=== PATIENT | female | born 1985 | race Caucasian/White ===

== ENCOUNTER 2016-11-23 12:56 | Inpatient (IN) ==
--- OUTSIDE RECORDS SUMMARY | 2016-11-23 13:34 | External Medical Summary | Continuity of Care Document ---
:1985 Author Organization [facility] Allergies Medications Problems Procedures Results Encounters ACCT No. Visit Discharge Status Pt. Type Provider Facility Loc./Unit Complaint Date/Time [id number] 06/02/2013 06/02/2013 CLS Outpatient 08:05:00 23:59:59 [id number] 06/01/2013 06/01/2013 CLS Outpatient 15:23:00 23:59:59 [id number] 03/02/2013 03/02/2013 CLS Outpatient 16:20:00 23:59:59
--- NOTE | 2016-11-23 14:20 | History & Physical Report ---
<Ludy Martínez V - Last Filed: 11/23/16 14:14> History of Present Illness Date: 11/23/16 Chief complaint: tonsillitis, leukocytosis HPI: Lucia is a pleasant 31-year-old female with a known history of bipolar disorder and mild MR. She is high functioning at baseline. 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. Last evening she noticed she was not feeling well and started having a sore throat. She reported having a fever, headaches with nausea. Today present. She presented to [facility] and was seen by Dr. Koehler. (Her primary care is Dr. Michelle). Inital strep and Randolph screen at the clinic today are negative. The BBC count was found to be elevated at 16.4, 67 segs and 24% bandemia. Sodium is normal at 141, potassium 3.9, BUN 11, creatinine 0.6. She was found to have a fever at the clinic of 100.7, pulse was elevated at 110. She was given 1 liter of IV fluids as well as 1 gram of IV Rocephin. Due to the significance of her throat pain and trismus, accompanied with leukocytosis and fever. Patient is unable to swallow fluids to maintain hydration. The hospitalist services were contacted and accepted patient for direct admission as an outpatient for further evaluation and treatment. Lucia is seen on initial arrival to [facility] accompanied with her mother (LAURA). On exam, she does appear uncomfortable. She is unable to tolerate swallowing even ice chips as this is painful. She is noted to have some white exudate on her bilateral tonsils along with erythema and swelling. Despite the IV fluid bolus. She received prior to arrival, her heart rate continues to be elevated at 100, and she is to Breathing 26 times a minute. Blood pressure stable at 110/67, and room air saturations 97%. Review of Systems Comprehensive ROS: completed and no additional positive findings except those as stated - Constitutional Constitutional: Present: chills, fatigue, fever(s), headache(s) - EENMT Mouth/Throat: Present: as per HPI, pain, sore throat, changes in swallowing, painful swallowing, dry mouth, change in voice - Gastrointestinal Gastrointestinal: Present: nausea - Musculoskeletal Musculoskeletal: Present: myalgias PFSH Past medical history ADD Bipolar affective disorder. Miranda/Delusions PTSD MR Seizure disorder Enthesopathy of ankle Pes planus (Flat foot disorder) History of urethral strictures. Surgical History: Cystoscopy-2002, 2005, 2007. D&C-2002 Family History: Father-mental illness Mother-alive and well Her other with seizure disorder Paternal grandfather with pancreatic cancer Paternal grandmother with dementia - Social History Smoking status: Never smoker Substance use type: does not use Alcohol intake frequency: does not drink Housing: house (resides independently) Current occupational status: employed ([employer]) Social history: PCP Dr Michelle [facility] Medications Home Medications Medication Instructions Recorded Confirmed Type Benztropine Mesylate 1 mg PO BID #0 10/23/10 11/23/16 History Medroxyprogesterone Acetate 150 mg IM EVERY 3 MONTHS #0 10/23/10 11/23/16 History [Depo-Provera] Calcium 500 + D [Os Christophe-D 500] 1 tab PO HS 11/23/16 11/23/16 History Multivitamin [One Daily 1 each PO HS 11/23/16 11/23/16 History Multivitamin] [place]-3/Dha/Epa/Fish Oil [Fish Oil 1 each PO BID 11/23/16 11/23/16 History 1,000 mg Softgel] cloZAPine [Clozapine] 150 mg PO HS 11/23/16 11/23/16 History cloZAPine [Clozapine] 200 mg PO AM 11/23/16 11/23/16 History Allergies Allergy/AdvReac Type Severity Reaction Status Date / Time Iodinated Contrast- Oral and Allergy Intermediate Verified 11/23/16 15:43 IV Dye Exam Vital Signs: Temperature 98.6 F 11/23/16 13:54 Pulse Rate 100 11/23/16 13:54 Respiratory Rate 26 H 11/23/16 13:54 Blood Pressure 110/69 11/23/16 13:54 Pulse Oximetry 97 11/23/16 13:54 Oxygen Delivery Method Room Air - Constitutional Present: no acute distress, well nourished, well developed - Routine HEENT Exam Eye: Present: EOMI ENT: Present: mucous membranes moist, dentition normal - Routine Neck Exam Present: tenderness (bilateral tonsillar ). Absent: tracheal deviation Comments: Trismus with voice change - Routine Respiratory Exam Present: CTA bilaterally. Absent: wheezes - Routine Cardiovascular Exam Present: RRR, S1, S2. Absent: murmur - Routine Abdominal Exam Present: soft, normoactive bowel sounds, non distended. Absent: tenderness - Routine Extremities Exam Present: normal capillary refill - Routine Back/Spine/Pelvis Exam Back/Spine: Present: full ROM - Routine Skin Exam Present: intact, dry, warm - Routine Neurological Exam Present: alert, oriented X3, moving all extremities CN 3-12 intact - Routine Psychiatric Exam Present: normal affect Assessment and Plan (1) SIRS (systemic inflammatory response syndrome) Current visit: Yes Status: Acute (2) Acute tonsillitis Current visit: Yes Status: Acute DVT Prophylaxis: SCD's Resuscitation Status: Full Code Assessment and Plan: Impression SIRS- criteria including the following- , Leukocytosis, bandemia, tachycardia following IV fluids, fever prior to arrival 100.7, tachypnea Acute tonsillitis Mental retardation-mild ADD, miranda and Bipolar PTSD Seizure disorder Plan Initially admit patient. Outpatient observation under the care of Dr. White for SIRS with acute tonsillitis. Obtain blood cultures 2, venous lactate and pro-calcitonin to rule out sepsis Patient did receive 1 liter of IV normal saline at the clinic prior to arrival. Despite this fluid. She continues to have tachycardia with a heart rate of 100 on admission. Due to the significance of her tonsillar pain. She is unable to swallow fluids to maintain hydration. We will continue IV fluids, normal saline at 100 ML per hour. Zofran available as needed for nausea. Toradol available as needed for pain control as patient does complain of a mild headache. Patient may have full liquid diet SCDs to bilateral lower extremity for DVT prophylaxis Home medications will need to be reviewed and ordered accordingly. She does verbalize concern of missing nighttime doses. May need to crush meds. If she is unable to swallow pills whole. Will recheck CBC and BMP tomorrow morning to follow blood counts, renal function and electrolytes. Will discuss further orders and plan of care with attending Dr. White. At time of discharge medical care will return to primary care provider, Dr. Michelle Hospital Course Summary Disclaimer: The visit summary below is not to be considered part of the above Progress Note. Hospital Course: 11/23/16 Impression SIRS- criteria including the following- , Leukocytosis, bandemia, tachycardia following IV fluids, fever prior to arrival 100.7, tachypnea Acute tonsillitis Mental retardation-mild ADD, miranda and Bipolar PTSD Seizure disorder Plan Initially admit patient. Outpatient observation under the care of Dr. White for SIRS with acute tonsillitis. Obtain blood cultures 2, venous lactate and pro-calcitonin to rule out sepsis Patient did receive 1 liter of IV normal saline at the clinic prior to arrival. Despite this fluid. She continues to have tachycardia with a heart rate of 100 on admission. Due to the significance of her tonsillar pain. She is unable to swallow fluids to maintain hydration. We will continue IV fluids, normal saline at 100 ML per hour. Zofran available as needed for nausea. Toradol available as needed for pain control as patient does complain of a mild headache. Patient may have full liquid diet SCDs to bilateral lower extremity for DVT prophylaxis Home medications will need to be reviewed and ordered accordingly. She does verbalize concern of missing nighttime doses. May need to crush meds. If she is unable to swallow pills whole. Will recheck CBC and BMP tomorrow morning to follow blood counts, renal function and electrolytes. Will discuss further orders and plan of care with attending Dr. White. At time of discharge medical care will return to primary care provider, Dr. Michelle <Paulina White - Last Filed: 11/23/16 17:58> History of Present Illness Date: 11/23/16 [facility] Patient Stated Medical History Other SEE ABOVE Other Musculoskeletal HX BALANCE DIFFICULTY Bipolar Disorder Yes Post Traumatic Stress Disorder Yes Abnormal Pap Yes Exam Vital Signs: Temperature 98.8 F 11/23/16 15:47 Pulse Rate 96 11/23/16 15:47 Respiratory Rate 26 H 11/23/16 15:47 Blood Pressure 117/65 11/23/16 15:47 Pulse Oximetry 97 11/23/16 15:47 Oxygen Delivery Method Room Air Height/Weight/BMI: Height 1.73 m Weight 90.7 kg Body Mass Index 30.4 Results - Labs Microbiology Results: Microbiology 11/23/16 14:24 Peripheral/Iv Start Blood Culture - Preliminary Culture Initiated - Results Pending 11/23/16 14:15 Peripheral/Iv Start Blood Culture - Preliminary Culture Initiated - Results Pending Assessment and Plan (1) Acute tonsillitis Problem details: Acute strep/Monospot negative Current visit: Yes Status: Acute (2) Sepsis Current visit: Yes Status: Acute Assessment and Plan: I have independently evaluated and examined this patient. I reviewed the chart, the patient's history, and the TECHNICAL TRAINING COORDINATOR/PA's documented findings as above. We discussed and formulated the assessment and plan as above with additions as below: Increasing pharyngeal pain accompanied by difficulty swallowing and trismus for 1-2 days. Presents with fever, tachycardia, tachypnea, leukocytosis, and left shift. Patient is anxious and difficulty speaking precludes her from providing most of history. Mom, Dr. Koehler, and office records supplemented patient's history. Examination reveals incomplete opening of the mouth but clear erythema posteriorly and exudates over the tonsils, uvula is midline. There is diffuse tenderness in the anterior cervical chain with a 1 cm tender node on the right; there supraclavicular tenderness although I could not appreciate any discrete adenopathy. No posterior adenopathy was appreciated. Respirations are nonlabored and breath sounds clear. Tonsillitis/acute pharyngitis with sepsis. Lactic acid 0.8, received Rocephin in the office, will treat with Unasyn. Follow-up on strep culture at [facility] tomorrow. Add steroids for swelling/trismus. Impaired oral intake-continue fluids as planned. Discussed with Dr. Koehler, office records reviewed, laboratory data reviewed; supplemental history provided by patient's mother. Sepsis Assessment - Evaluation Possible source: other (pharynx) SIRS Criteria: temperature > or equal to 100.4, pulse > or equal to 90 beats/ minute, WBC > or equal to 12,000, Bands > or equal to 10%, RR > or equal to 20 Hospital Course Summary Disclaimer: The visit summary below is not to be considered part of the above Progress Note.
[2016-11-23] MEDS: NS 1,000 ML IV SCH (14:21)
[2016-11-23] MEDS: SALINE FLUSH 10ml SYRINGE IVF PRN ×2 (14:22→21:11)
[2016-11-23] MEDS ORDERED: ONDANSETRON 4 MG/2 ML INJECTION IVP PRN (14:27)
[2016-11-23] MEDS: KETOROLAC 15 MG/ML INJECTION IVP PRN ×2 (14:38→21:08)
[2016-11-23 15:08] VITALS: BMI 30.4
[2016-11-23] MEDS ORDERED: PENICILLIN G BENZATHINE 1.2 MMU/2 ML SYRINGE IM ONE (17:43)
[2016-11-23] MEDS: METHYLPREDNISOLONE SOD SUCC 40mg/ml INJECTION IVP SCH (18:41)
[2016-11-23] MEDS: AMPICILLIN/SULBACTAM 3 G in NS 100 ML IV SCH (18:43)
[2016-11-23] MEDS: CloZAPine 100 MG TABLET PO SCH (21:10)
[2016-11-23] MEDS: CALCIUM 500 + VIT D 200 TABLET PO SCH (21:10)
[2016-11-23] MEDS: BENZTROPINE 1 MG TABLET PO SCH (21:10)
[2016-11-24] MEDS: AMPICILLIN/SULBACTAM 3 G in NS 100 ML IV SCH ×4 (00:24→17:43)
[2016-11-24] MEDS: METHYLPREDNISOLONE SOD SUCC 40mg/ml INJECTION IVP SCH ×2 (00:25→08:43)
[2016-11-24] MEDS: NS 1,000 ML IV SCH ×2 (00:25→13:22)
[2016-11-24] MEDS: KETOROLAC 15 MG/ML INJECTION IVP PRN (04:58)
[2016-11-24] MEDS: SALINE FLUSH 10ml SYRINGE IVF PRN (04:59)
[2016-11-24] MEDS: CloZAPine 100 MG TABLET PO SCH ×2 (08:43→22:34)
[2016-11-24] MEDS: BENZTROPINE 1 MG TABLET PO SCH ×2 (08:44→22:34)
[2016-11-24] MEDS ORDERED: ACETAMINOPHEN 325 MG TABLET PO PRN ×2 (16:43→16:46)
--- NOTE | 2016-11-24 16:50 | Progress Note ---
<LarryAbigail Feliberto - Last Filed: 11/24/16 16:47> Subjective: Lucia is seen in follow up. She reports feeling better- hungry and wanting to eat. Does report intermittent headache since she has been ill. No photophobia. No N/ V. Does report that she did have some abdominal pain since the onset of illness, now improving. Reports that she is swallowing without pain. No other acute c/o. Chart is reviewed. Lucia is mildly MR, so she is a bit of a poor historian. She does answer appropriate questions. Objective Vital signs: Temperature 97.7 F 11/24/16 15:49 Pulse Rate 76 11/24/16 15:49 Respiratory Rate 20 11/24/16 15:49 Blood Pressure 128/65 11/24/16 15:49 Pulse Oximetry 95 11/24/16 15:49 Oxygen Delivery Method Room Air Height/Weight/BMI: Height 1.73 m Weight 92.6 kg Body Mass Index 30.4 - Constitutional Present: no acute distress, well nourished, well developed, average body habitus - Routine HEENT Exam Head: Present: normocephalic, atraumatic Eye: Present: EOMI, PERRL ENT: Present: mucous membranes moist, dentition normal - Routine Respiratory Exam Present: CTA bilaterally. Absent: rhonchi, wheezes, crackles Comments: Decreased breath sounds in bases. No cough or congestion. - Routine Cardiovascular Exam Present: RRR, S1, S2, no murmur - Routine Abdominal Exam Present: soft, normoactive bowel sounds, non distended, non tender - Routine Extremities Exam Present: no edema, non tender - Routine Musculoskeletal Exam Musculoskeletal: Present: no clubbing or cyanosis, normal strength - Routine Skin Exam Present: intact, dry, warm - Routine Neurological Exam Present: alert, oriented X3 - Routine Psychiatric Exam Present: normal affect, normal thought process Results - Labs CBC & Chem 7: 11/24/16 04:30 11/24/16 04:30 Microbiology Results: Microbiology 11/23/16 14:24 Peripheral/Iv Start Blood Culture - Preliminary No Growth After 1 Day 11/23/16 14:15 Peripheral/Iv Start Blood Culture - Preliminary No Growth After 1 Day 11/23/16 18:57 Throat Throat Culture - Preliminary Normal Oral Tresa Present Assessment and Plan (1) Acute tonsillitis Problem details: Acute strep/Monospot negative Current visit: Yes Status: Acute (2) Sepsis Current visit: Yes Status: Acute DVT Prophylaxis: SCD's Resuscitation Status: Full Code Assessment and Plan: Impression: SIRS- criteria including the following- , Leukocytosis, bandemia, tachycardia following IV fluids, fever prior to arrival 100.7, tachypnea Acute tonsillitis/Pharyngitis (Likely strep given headache and abdominal pain) Mental retardation-mild ADD, miranad and Bipolar PTSD Seizure disorder Headache Plan: 11/24/16- She is feeling a bit better. Hungry- will allow diet as tolerated. Continue IV abx, IVF, toradol for supportive care. Will add Tylenol for breakthrough headache. Continue supportive home meds. Repeat labs in AM. Potentially home tomorrow. Lucia had multiple appropriate questions about her condition, D/W her at length. Will add SCDs for DVT px. - Time spent with patient 25 - 35 minutes Sepsis Assessment - Evaluation Sepsis screening result: No Definite Risk Hospital Course Summary Disclaimer: The visit summary below is not to be considered part of the above Progress Note. Hospital Course: 11/23/16 Impression SIRS- criteria including the following- , Leukocytosis, bandemia, tachycardia following IV fluids, fever prior to arrival 100.7, tachypnea Acute tonsillitis Mental retardation-mild ADD, miranda and Bipolar PTSD Seizure disorder Plan Initially admit patient. Outpatient observation under the care of Dr. White for SIRS with acute tonsillitis. Obtain blood cultures 2, venous lactate and pro-calcitonin to rule out sepsis Patient did receive 1 liter of IV normal saline at the clinic prior to arrival. Despite this fluid. She continues to have tachycardia with a heart rate of 100 on admission. Due to the significance of her tonsillar pain. She is unable to swallow fluids to maintain hydration. We will continue IV fluids, normal saline at 100 ML per hour. Zofran available as needed for nausea. Toradol available as needed for pain control as patient does complain of a mild headache. Patient may have full liquid diet SCDs to bilateral lower extremity for DVT prophylaxis Home medications will need to be reviewed and ordered accordingly. She does verbalize concern of missing nighttime doses. May need to crush meds. If she is unable to swallow pills whole. Will recheck CBC and BMP tomorrow morning to follow blood counts, renal function and electrolytes. Will discuss further orders and plan of care with attending Dr. White. At time of discharge medical care will return to primary care provider, Dr. Michelle 11/24/16 16:53 11/24/16 16:57 11/24/16- She is feeling a bit better. Hungry- will allow diet as tolerated. Continue IV abx, IVF, toradol for supportive care. Will add Tylenol for breakthrough headache. Continue supportive home meds. Repeat labs in AM. Potentially home tomorrow. Lucia had multiple appropriate questions about her condition, D/W her at length. Will add SCDs for DVT px. <Paulina White - Last Filed: 11/24/16 20:20> Objective Vital signs: Temperature 97.7 F 11/24/16 15:49 Pulse Rate 100 11/24/16 16:00 Respiratory Rate 20 11/24/16 15:49 Blood Pressure 128/65 11/24/16 15:49 Pulse Oximetry 95 11/24/16 15:49 Oxygen Delivery Method Room Air Height/Weight/BMI: Height 1.73 m Weight 92.6 kg Body Mass Index 30.4 Results - Labs CBC & Chem 7: 11/24/16 04:30 11/24/16 04:30 Microbiology Results: Microbiology 11/23/16 14:24 Peripheral/Iv Start Blood Culture - Preliminary No Growth After 1 Day 11/23/16 14:15 Peripheral/Iv Start Blood Culture - Preliminary No Growth After 1 Day 11/23/16 18:57 Throat Throat Culture - Preliminary Normal Oral Tresa Present Assessment and Plan (1) Acute tonsillitis Problem details: Acute strep/Monospot negative Current visit: Yes Status: Acute (2) Sepsis Current visit: Yes Status: Acute Assessment and Plan: I have independently evaluated and examined this patient. I reviewed the chart, the patient's history, and the LAND RESOURCE SPECIALIST/PA's documented findings as above. We discussed and formulated the assessment and plan as above with additions as below: Lucia reports decreased oropharyngeal pain improved intake of full liquids today. She's been able to swallow medications without difficulty. She denied dyspnea or fever. She denied dysuria but reports large-volume urine. Mother reports that she's been more awake/alert today than is typical and asked if steroids were contributing to this. Speech is clearer today with stronger voice. Able to open mouth well, tonsils well visualized-erythematous with crypts and exudates, uvula midline Neck supple, minor adenopathy, significantly less tender today Respirations nonlabored and clear Low-grade tachycardia [facility] records reviewed-throat culture obtained yesterday positive for group G beta-hemolytic strep in large quantity Strep throat/tonsillitis-doing well Continue current therapy, advance to soft diet with decreased IV fluids. If tolerates changes made today will convert to oral antibiotics and discharge tomorrow. Convert to oral prednisone and taper quickly. Hospital Course Summary Disclaimer: The visit summary below is not to be considered part of the above Progress Note.
[2016-11-24] MEDS: PredniSONE 20 MG TABLET PO SCH (17:48)
[2016-11-24] MEDS: CALCIUM 500 + VIT D 200 TABLET PO SCH (22:34)
[2016-11-25] MEDS: AMPICILLIN/SULBACTAM 3 G in NS 100 ML IV SCH ×3 (00:18→12:14)
[2016-11-25] MEDS: NS 1,000 ML IV SCH ×2 (00:18→13:10)
[2016-11-25 07:52] VITALS: BP 118/75; PULSE 73; RESP 18; TEMP 96.7; O2SAT 97
[2016-11-25] MEDS: BENZTROPINE 1 MG TABLET PO SCH (08:10)
[2016-11-25] MEDS: CloZAPine 100 MG TABLET PO SCH (08:10)
[2016-11-25] MEDS: PredniSONE 20 MG TABLET PO SCH (08:10)
[2016-11-25] MEDS ORDERED: PENICILLIN G BENZATHINE 1.2 MMU/2 ML SYRINGE IM ONE (12:00)
--- NOTE | 2016-11-25 12:10 | Discharge Instructions ---
Discharge Plan - Med Rec/Dispo Referrals/Follow Up: Kirt Michelle MD [Primary Care Provider] - 1 Week Randi Instructions: Strep Throat (GEN) Prescriptions: New PredniSONE [Deltasone] 20 mg PO WB #3 tab Acetaminophen [Tylenol] 650 mg PO Q5H PRN tablet PRN Reason: Pain Continue Medroxyprogesterone Acetate [Depo-Provera] 150 mg IM EVERY 3 MONTHS #0 Multivitamin [One Daily Multivitamin] 1 each PO HS [place]-3/Dha/Epa/Fish Oil [Fish Oil 1,000 mg Softgel] 1 each PO BID cloZAPine [Clozapine] 150 mg PO HS Calcium 500 + D [Os Christophe-D 500] 1 tab PO HS Benztropine Mesylate 1 mg PO BID #0 cloZAPine [Clozapine] 200 mg PO AM Discharge Instructions/Outpatient Orders: Final Provider Discharge Instructions Location: Determined By Patient - Disposition 01 Discharged Home, Self-Care
--- NOTE | 2016-11-25 18:39 | Discharge Summary ---
Discharge Information Date of admission: 11/23/16 16:05 Anticipated date of discharge: 11/25/16 Attending Physician: Paulina White MD Primary care physician: Kirt Michelle MD - Discharge Diagnosis Discharge Diagnosis: Strep pharyngitis/tonsillitis - Laboratory Labs: 11/25/16 04:00 11/25/16 04:00 - Microbiology Microbiology 11/23/16 14:24 Peripheral/Iv Start Blood Culture - Preliminary No Growth After 2 Days 11/23/16 14:15 Peripheral/Iv Start Blood Culture - Preliminary No Growth After 2 Days 11/23/16 18:57 Throat Throat Culture - Final Normal Oral Tresa Present History of Present Illness HPI: Lucia is a pleasant 31-year-old female with a known history of bipolar disorder and mild MR. She is high functioning at baseline. 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 Last evening she noticed she was not feeling well and started having a sore throat. She reported having a fever, headaches with nausea. Today present. She presented to via [facility] [place] clinic and was seen by Dr. Koehler. (Her primary care is Dr. Michelle). Inital strep and [place] screen at the clinic today are negative. The [facility] count was found to be elevated at 16.4, 67 segs and 24% bandemia. Sodium is normal at 141, potassium 3.9, BUN 11, creatinine 0.6. She was found to have a fever at the clinic of 100.7, pulse was elevated at 110. She was given 1 liter of IV fluids as well as 1 gram of IV Rocephin. Due to the significance of her throat pain and trismus, accompanied with leukocytosis and fever. Patient is unable to swallow fluids to maintain hydration. The hospitalist services were contacted and accepted patient for direct admission as an outpatient for further evaluation and treatment. Lucia is seen on initial arrival to [facility] accompanied with her mother (DPOA). On exam, she does appear uncomfortable. She is unable to tolerate swallowing even ice chips as this is painful. She is noted to have some white exudate on her bilateral tonsils along with erythema and swelling. Despite the IV fluid bolus. She received prior to arrival, her heart rate continues to be elevated at 100, and she is to Breathing 26 times a minute. Blood pressure stable at 110/67, and room air saturations 97%. Hospital Course This is a general summary of the patient's hospital course. For more details refer to the complete medical record. Hospital course: Impression Sepsis Acute tonsillitis/pharyngitis-group G strep positive Trismus Dehydration Mental retardation-mild ADD, miranda and Bipolar PTSD Seizure disorder Plan Lucia was admitted with acute pharyngitis, trismus, and inability to maintain oral intake. She had multiple criteria for sepsis based on leukocytosis, left shift, tachycardia present after administration of IV fluids prior to arrival, tachypnea, and fever. Unasyn was initiated for pharyngitis and IV fluids continued on admission. The patient was treated with Solu-Medrol the first 24 hours and then converted to prednisone due to trismus with prompt improvement in ability to open her mouth and tolerating oral intake. Rate of IV fluids was reduced on the second hospital day and she was able to increase oral intake and advanced to full liquids and then soft diet with therapy. Hemoglobin dropped slightly with hydration consistent with presenting dehydration. Cultures obtained during the hospitalization were negative however a strep culture obtained in the outpatient office was positive for group B strep. The patient was clinically stable on 11/25 and felt capable of oral antibiotics for continuation of therapy. She preferred IM pen G as a single dose to complete antibiotic therapy to oral antibiotics however to 1.2 million units dose was given completing therapy prior to discharge. On the date of discharge Lucia reported that her throat was significantly better and she was tolerating oral intake well. Examination demonstrated persistent erythema in the posterior pharynx although less intense than on admission. There is residual enlargement of the tonsils with crypts present and some exudate. Neck was supple with minimal adenopathy but marked improvement in tenderness present on admission. Respirations were nonlabored and Lucia was alert and cooperative. She is asked to continue prednisone 20 mg daily for 3 additional days and will otherwise continue all of her usual medications at prior dosages. She is to follow up with Dr. Michelle in approximately 1 week for reassessment. Hospital course was otherwise uncomplicated. Plans were reviewed with the patient's mother. Time spent with patient: discharge greater than 30 minutes Discharge Plan - Med Rec/Dispo Referrals/Follow Up: Kirt Michelle MD [Primary Care Provider] - 1 Week Randi Instructions: Strep Throat (GEN) Prescriptions: New PredniSONE [Deltasone] 20 mg PO WB #3 tab Acetaminophen [Tylenol] 650 mg PO Q5H PRN tablet PRN Reason: Pain Continue Medroxyprogesterone Acetate [Depo-Provera] 150 mg IM EVERY 3 MONTHS #0 Multivitamin [One Daily Multivitamin] 1 each PO HS [place]-3/Dha/Epa/Fish Oil [Fish Oil 1,000 mg Softgel] 1 each PO BID cloZAPine [Clozapine] 150 mg PO HS Calcium 500 + D [Os Christophe-D 500] 1 tab PO HS Benztropine Mesylate 1 mg PO BID #0 cloZAPine [Clozapine] 200 mg PO AM Discharge Instructions/Outpatient Orders: Final Provider Discharge Instructions Location: Determined By Patient - Disposition 01 Discharged Home, Self-Care
[2016-11-26] MEDS ORDERED: PredniSONE 20 MG TABLET PO SCH (08:00)
== END 2016-11-25 14:35 | disposition home or self-care (01) | DRG 872 ==
LOC: MED
PROVIDERS: ADMIT Internal Medicine; ATTEND Internal Medicine